=== PATIENT | female | born 1930 | race Caucasian/White ===

== ENCOUNTER 2018-10-09 10:37 | Inpatient (IN) | payer OTHER, BC ==
[2018-10-09] VITALS (43 sets, daily range): BP systolic 105–143; BP diastolic 56–80
[~2018-10-09] VITALS: Ht 157.5 cm; Wt 48.7 kg
[~2018-10-09 10:37] MED LIST: AVELOX400 MG PO; COMBIVENT INH
[2018-10-09 10:56] LABS: BASOPHILS 0.4 % (0.0-2.0); HEMOGLOBIN 12.1 gm/dL (12.0-15.0); LYMPHOCYTES 4.4 % (24.0-44.0); MCH 21.5 pg (26.0-34.0); MCV 69.4 fL (80.0-100.0); MONOCYTES 4.9 % (1.0-8.0); PLATELET COUNT 243 thou/uL (150-400); POLYS 90.3 % (36.0-66.0); RBC 5.63 mil/uL (4.20-5.00); RDW 15.9 % (10.5-14.5); WBC 11.1 thou/uL (4.0-11.0)
[2018-10-09 11:04] LABS: BE(vivo) 5.8 mmol/L (-2 to +3); HCO3 35.3 mmol/L (22.0-26.0); PCO2 77.7 mmHg (35.0-45.0); PO2 43.9 mmHg (80.0-100.0); pH 7.275 (7.360-7.450); sO2 71.5 % (92.0-98.0)
[2018-10-09 11:05] LABS: CALCIUM 9.6 mg/dL (8.5-10.1); CREATININE 1.3 mg/dL (0.6-1.0); POTASSIUM 4.2 mmol/L (3.5-5.1)
[2018-10-09 11:13] LABS: ALBUMIN 3.1 g/dL (3.4-5.0); TOTAL BILIRUBIN 0.2 mg/dL (<0.1-1.0); TOTAL PROTEIN 8.2 g/dL (6.4-8.2)
[2018-10-09] MEDS ORDERED: SYNTHROID100 MC1 PO (11:13)
[2018-10-09] MEDS ORDERED: LIPITOR10 MG PO (11:14)
[2018-10-09] MEDS ORDERED: SIMBRINZA 1%-0.28 ML OPHTHALMIC (11:14)
[2018-10-09] MEDS ORDERED: NORVASC5 MG PO (11:15)
[2018-10-09] MEDS ORDERED: LISINOPRIL20 MG PO (11:15)
[2018-10-09] MEDS ORDERED: PRED FORTE 1% EY5 M1 OPHTHALMIC (11:16)
[2018-10-09] MEDS ORDERED: FOSAMAX 70 MG T70 MG PO (11:17)
[2018-10-09 11:18] LABS: TROPONIN-I 0.81 ng/mL (<0.06)
[2018-10-09] MEDS ORDERED: CELEXA10 MG PO (11:18)
[2018-10-09] MEDS ORDERED: ARICEPT 5 MG TAB5 MG PO (11:18)
[2018-10-09] MEDS ORDERED: FISH OIL 1,001000 M2 PO (11:19)
[2018-10-09] MEDS ORDERED: CENTRUM SILVER1 EAC4 PO (11:19)
[2018-10-09 11:20] LABS: ANISOCYTOSIS 1+; MICROCYTES 2+; PLATELET ESTIMATE NORMAL
[2018-10-09] MEDS ORDERED: CALCIUM 600 +1 EAC1 PO (11:20)
[2018-10-09] MEDS ORDERED: VITAMINC500 PO (11:20)
[2018-10-09] MEDS ORDERED: ERYTHROMYCIN E3.5 G3 OPHTHALMIC (11:22)
[2018-10-09 12:43] LABS: BE(vivo) 4.6 mmol/L (-2 to +3); HCO3 34.9 mmol/L (22.0-26.0); PCO2 86.7 mmHg (35.0-45.0); PO2 474.4 mmHg (80.0-100.0); pH 7.223 (7.360-7.450); sO2 99.8 % (92.0-98.0)
--- NOTE | 2018-10-09 13:55 | NUR ---
PATIENT ARRIVED FROM ED WITH ASSISTANCE OF MEDICAL STAFF. FAMILY IN WAITING ROOM AT THIS TIME. 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 PATIENT DENIES PAIN. SHE WAS ABLE TO ANSWER ALL QUESTIONS. BIPAP IS IN PLACE. CONSULTS CALLED. AWAITING FURTHER ORDERS. PATIENT APPEARS STABLE AT THIS POINT. NURSE TO CONTINUE TO MONITOR PATIENT STATUS.
[2018-10-09 14:03] LABS: TSH 0.054 uIU/mL (0.358-3.740)
--- NOTE | 2018-10-09 14:48 | 2DMMODE ---
[facility] [address] [place] [address] 2 D/M-MODE ECHOCARDIOGRAM Name: CEDRIC JONES Room #: 244-P [facility] IN ..#: [id number] ������������� Admission: 10/09/18 ������������� Attend Phys: Dov Sánchez MD Discharge: ��� ������������� ��� Date of : [birth year] Date of Service: 10/09/18 1448 �� Report #: [id number] �������� ��������������������������������������������[id number] THIS REPORT FOR: //name// APPROVED REPORT Study performed: 10/09/2018 13:41:07 EXAM: Comprehensive 2D, Doppler, and color-flow Echocardiogram Patient Location: Bedside Room #: 244 Status: routine BSA: 1.52 HR: 91 bpm BP: 14/76 mmHg Rhythm: NSR Other Information Study Quality: Good Risk Factors: Cardiac Risk Factors: HTN, Hyperlipidemia Indications Aortic Valve Disease Elevated BNP Respiratory Failure 2D Dimensions IVSd: 12.06 (7-11mm) LVOT Diam: 19.00 (18-24mm) LVDd: 37.46 mm PWd: 12.98 (7-11mm) Ascending Ao: 37.24 (22-36mm) LVDs: 31.20 (25-40mm) Aortic Root: 25.73 mm LV Single Plane 4CH: 42.00 % LV Single Plane 2CH: 41.00 % Biplane EF: 42.0 % Volumes Left Atrial Volume (Systole) Single Plane 4CH: 63.30 mL Single Plane 2CH: 42.23 mL LA ESV Index: 37.00 mL/m2 Aortic Valve AoV Peak Tre.: 2.98 m/s AO Peak Gr.: 35.48 mmHg LVOT Max P.92 mmHg [facility] [address] [address] 2 D/M-MODE ECHOCARDIOGRAM Name: CEDRIC JONES Room #: 244-P [facility] IN [facility]#: [id number] ������������� Admission: 10/09/18 ������������� Attend Phys: Dov Sánchez MD Discharge: ��� ������������� ��� Date of : [birth year]/29/[birth year] Date of Service: 10/09/18 1448 �� Report #: [id number] �������� ��������������������������������������������[id number] AO Mean Gr.: 20.31 mmHg LVOT Mean P.81 mmHg AO V2 Mean: 2.17 m/s LVOT Max V: 1.11 m/s AO V2 VTI: 60.05 cm LVOT Mean V: 0.79 m/s PARKER (VTI): 1.10 cm2 LVOT V1 VTI: 24.17 cm PARKER Vmax: 1.02 cm2 SV (LVOT): 66.34 mL Mitral Valve E/A Ratio: 0.8 MV Decel. Time: 157.64 ms MV E Max Tre.: 1.01 m/s MV A Tre.: 1.24 m/s MV PHT: 45.72 ms IVRT: 58.82 ms TDI E/Lateral E': 14.43 E/Medial E': 25.25 Medial E' Tre.: 0.04 m/s Lateral E' Tre.: 0.07 m/s Pulmonary Valve PV Peak Tre.: 1.01 m/s PV Peak Gr.: 4.12 mmHg SC End Vmax: 1.25 m/s Pulmonary Vein P Vein S: 0.35 m/s P Vein A: 0.35 m/s P Vein D: 0.52 m/s P Vein A Dur.: 86.5 msec P Vein S/D Ratio: 0.67 Tricuspid Valve TR Peak Tre.: 3.03 m/s RAP Estimate: 10.00 mmHg TR Peak Gr.: 36.83 mmHg PA Pressure: 47.00 mmHg Left Ventricle The left ventricle is normal size. Mid anterior and lateral wall hypokinesis. Mild concentric left ventricular hypertrophy. Left ventricular systolic function is decreased. LVEF is 40-45%. Mild diastolic dysfunction is present (impaired relaxation pattern). Right Ventricle The right ventricle is normal size. The right ventricular systolic function [place] [address] 2 D/M-MODE ECHOCARDIOGRAM Name: CEDRIC JONES Room #: 244-P [facility] IN M.R.#: [id number] ������������� Admission: 10/09/18 ������������� Attend Phys: Dov Sánchez MD Discharge: ��� ������������� ��� Date of : 12/29/28 Date of Service: 10/09/18 1448 �� Report #: [id number] �������� ��������������������������������������������[id number] Left atrium is mildly dilated. The right atrium size is normal. Aortic Valve Aortic valve is calcified. No aortic regurgitation is present. The peak aortic valve gradient is 36 mmHg and the mean gradient is 20 mmHg. The aortic valve area is 1.0 cm2. Moderate aortic stenosis. Mitral Valve Mitral valve leaflets are mildly thickened. There is mitral annular calcification. Mild mitral regurgitation. No evidence of mitral valve stenosis. Tricuspid Valve The tricuspid valve is normal in structure. Mild tricuspid regurgitation. Pulmonary artery pressure is 47 mmHg. Pulmonic Valve The pulmonary valve is normal in structure. Mild to moderate pulmonic regurgitation. Great Vessels The aortic root is normal in size. IVC is normal in size and collapses >50% with inspiration. Pericardium There is no pericardial effusion. <Conclusion> The left ventricle is normal size. LVEF is 40-45%. Mid anterior and lateral wall hypokinesis. Left atrium is mildly dilated. Aortic valve is calcified. No aortic regurgitation is present. The peak aortic valve gradient is 36 mmHg and the mean gradient is 20 mmHg. The aortic valve area is 1.0 cm2. Moderate aortic stenosis. Mitral valve leaflets are mildly thickened. There is mitral annular calcification. Mild mitral regurgitation. The tricuspid valve is normal in structure. Mild tricuspid regurgitation. Pulmonary artery pressure is 47 mmHg. The pulmonary valve is normal in structure. [address] [address] 2 D/M-MODE ECHOCARDIOGRAM Name: CEDRIC JONES Room #: 244-P [facility] IN ..#: [id number] ������������� Admission: 10/09/18 ������������� Attend Phys: Dov Sánchez MD Discharge: ��� ������������� ��� Date of : [birth year]/29/28 Date of Service: 10/09/18 1448 �� Report #: [id number] �������� ��������������������������������������������[id number] Mild to moderate pulmonic regurgitation. The aortic root is normal in size. There is no pericardial effusion. ��������������������������������������������� <ELECTRONICALLY SIGNED> ���������������������������������������� By: Isaiah Pike MD ��������������������������������������������� 10/09/18 1448 1448 1448 Isaiah Pike MD /INF
--- NOTE | 2018-10-09 21:30 | NUR ---
GCS 15. A&O X3-4. FC, SWARTZ. GENERALIZED WEAKNESS. CALM, PLEASANT DEMEANOR. FORGETFUL AT TIMES. PERIODS OF DROWSINESS. SINUS RHYTHM ON MONITOR. PT REMAINS ON BIPAP. O2 SAT > 92%. BIPAP SETTINGS FOLLOWS: 16/6, RATE 18, FIO2 40%. ORAL MUCOSA DRY. LOOSE TEETH. PROVIDING FREQUENT ORAL CARE. PT IS NPO; SPEECH TO EVALUATE PT IN THE MORNING. ZUNIGA TO DD. ADEQUATE URINE OUTPUT. TURN Q2 HR AND PRN. VITAL SIGNS AND ASSESSMENTS DOCUMENTED. WILL CONTINUE TO MONITOR.
[2018-10-09 23:06] LABS: GLYCOHEMOGLOBIN (HGB A1C) 6.2 % (4.8-5.6)
[2018-10-10] VITALS (77 sets, daily range): BP systolic 118–150; BP diastolic 63–92
[2018-10-10 05:26] LABS: ABSOLUTE NEUTROPHILS 9.6 thou/uL (1.4-8.2); BASOPHILS 0.7 % (0.0-2.0); HEMATOCRIT 39.8 % (37.0-47.0); HEMOGLOBIN 12.2 gm/dL (12.0-15.0); MCH 21.4 pg (26.0-34.0); MCHC 30.8 g/dL (28.0-37.0); MCV 69.4 fL (80.0-100.0); MONOCYTES 6.5 % (1.0-8.0); PLATELET COUNT 227 thou/uL (150-400); POLYS 87.8 % (36.0-66.0); RBC 5.73 mil/uL (4.20-5.00); RDW 15.8 % (10.5-14.5); WBC 10.9 thou/uL (4.0-11.0)
[2018-10-10 05:54] LABS: ANION GAP 7 mmol/L (7-16); BUN 38 mg/dL (7-18); CALCIUM 8.6 mg/dL (8.5-10.1); CHLORIDE 101 mmol/L (98-107); CHOLESTEROL 143 mg/dL (<200); CO2 33 mmol/L (21-32); CREATININE 0.8 mg/dL (0.6-1.0); GLUCOSE 195 mg/dL (74-106); HDL CHOLESTEROL 53 mg/dL (>40); LDL CHOLESTEROL 77 mg/dL (<100); MAGNESIUM 2.1 mg/dL (1.8-2.4); POTASSIUM 4.4 mmol/L (3.5-5.1); SERUM ASSESSMENT Clear; SODIUM 141 mmol/L (136-145); TC:HDL 2.7 Ratio (Not establshd); TRIGLYCERIDE 66 mg/dL (<150); VLDL 13 mg/dL (<40)
[2018-10-10 05:55] LABS: TROPONIN-I 0.74 ng/mL (<0.06)
--- NOTE | 2018-10-10 10:43 | EKG ---
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: : 1930 Requested By: Suzy Porter Order Number: [id number] MD: Isaiah Pike Measurements Intervals [place] Rate: 103 P: 89 WA: 196 QRS: 45 QRSD: 104 T: 109 QT: 340 QTc: 445 Interpretive Statements Sinus tachycardia Poor R-wave progression Biatrial enlargement LVH with secondary repolarization abnormality Baseline wander in lead(s) V4 No previous ECG available for comparison Electronically Signed On 10-10-2018 10:42:53 [address] [employer] by Isaiah Pike [email or web address] ��������������������������������������������� <ELECTRONICALLY SIGNED> ���������������������������������������� By: Isaiah Pike MD ��������������������������������������������� 10/10/18 1042 29 29 Isaiah Pike MD /EPI
--- NOTE | 2018-10-10 12:12 | EKG ---
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 : 1930 Requested By: Nemo Hampton Order Number: [id number] MD: Isaiah Pike Measurements Intervals [place] Rate: 78 P: 80 ID: [id number] QRS: 32 QRSD: 101 T: 80 QT: 405 QTc: 462 Interpretive Statements Sinus rhythm Right atrial enlargement left ventricular hypertrophy Nonspecific ST-T wave changes Baseline wander No previous ECG available for comparison Electronically Signed On 10-10-2018 12:12:33 CONSTRUCTION MANAGER by Isaiah Pike [email or web address] ��������������������������������������������� <ELECTRONICALLY SIGNED> ���������������������������������������� By: Isaiah Pike MD ��������������������������������������������� 10/10/18 1212 0639 8 Isaiah Pike MD /AILYN
--- NOTE | 2018-10-10 14:26 | HC ---
[facility] [place] [address] CONSULTATION Name: CEDRIC JONES Room #: 244-P [facility] IN .R.#: [id number] Admission: 10/09/18 ������������������ Attend Phys: Dov Sánchez MD Discharge: ������������������ Date of : [birth year]/29/[birth year] Report #: [id number] THIS REPORT FOR: //name// CC: Luis E Sánchez TYPE OF REPORT: Pulmonary consultation. REFERRAL PHYSICIAN: Dov Sánchez M.D. REASON FOR REFERRAL: Acute hypoxic respiratory failure. HISTORY OF PRESENT ILLNESS: The patient is an 87-year-old white female who was brought to the Emergency Department with hypoxia and dyspnea. A Pulmonary consultation was requested. The patient has a history of breast cancer, undergoing left mastectomy in 2007. Otherwise, she has been doing fairly well. Despite her advanced age, she is remaining active. She lives independently. She has ambulated up to recently, though the son notes that she has been slowing down somewhat. The patient has smoked for many years, quit in . She has been told that she has COPD. She was in her usual state of health until earlier today. She was noted to be hypoxic and she was noted to be tachypneic. EMS was called. When they arrived at her residence, she was found to be hypoxic with a saturation of 60%. She was brought to the Emergency Department. She was then placed on BiPAP. Currently, she is doing fairly well. She is awake, alert, in no distress. The patient denies any recent nausea, vomiting, diarrhea, febrile illness, chest pain or productive cough. PAST MEDICAL HISTORY: History of breast cancer, status post left mastectomy in 2007. Details not known, history of hypertension, hypothyroidism, dementia, depression, osteoporosis and history of COPD. ALLERGIES: TETRACYCLINE, her reactions unspecified. HOME MEDICATIONS: Synthroid, Lipitor, Simbrinza, Zestril, Norvasc, Fosamax, Aricept, Celexa, multivitamins and erythromycin eyedrops. FAMILY HISTORY: Noncontributory. SOCIAL HISTORY: The patient has smoked for many years but quit in . She [facility] [address] [address] CONSULTATION Name: CEDRIC JONES Carmen Room #: 244-P [facility] IN M.R.#: [id number] Admission: 10/09/18 ������������������ Attend Phys: Dov Sánchez MD Discharge: ������������������ Date of : [birth year]/29/[birth year] Report #: [id number] has drunk in the past but not more recently. She lives independently. She continues to live independently. REVIEW OF SYSTEMS: As mentioned above. Notable for gradual weakness. She is still ambulating, though the gait is slowed somewhat. There has been gradual weight loss over the past year or so, less than 10 pounds. Otherwise, 10-point system review negative. PHYSICAL EXAMINATION: GENERAL: She is awake, alert, in mild distress, currently, tolerating BiPAP. VITAL SIGNS: Temperature is 99 degrees Fahrenheit, pulse is 86, respiratory rate is 27, blood pressure 125/71 mmHg and saturation 99%. HEENT: Normocephalic and atraumatic. NECK: Supple, without any lymphadenopathy or thyromegaly. CHEST: Breath sounds are fair with mild expiratory wheezes. Few scattered crackles in the bases. CARDIOVASCULAR: Normal S1 and S2. There are no murmurs or gallop. There is no JVD. There is no carotid bruit. Pulses are 2+/4+ bilaterally. ABDOMEN: Soft and nontender. No organomegaly or masses felt. GENITOURINARY: Deferred. RECTAL: Deferred. EXTREMITIES: No edema, cyanosis or clubbing. MUSCULOSKELETAL: Notable for moderate muscle atrophy. RADIOLOGICAL DATA: Chest x-ray and chest CT are reviewed. CT chest shows no evidence of pulmonary embolus. It did show mild bilateral patchy infiltrates predominantly in the subpleural areas, increase in infiltrate in the right middle lobe, mild bronchiectasis is also noted along with mild second peribronchial areas seen bilaterally. Mediastinum appears to show mildly enlarged subcarinal lymph nodes; however, no effusion seen and no consolidation or air bronchogram seen. EKG shows LVH, atrial premature complexes, biatrial enlargement, otherwise no acute ischemic changes. LABORATORY DATA: Electrolytes are normal except for creatinine of 1.3. Liver enzymes are grossly unremarkable. WBC 11,100 without a left shift. Arterial blood gas revealed pH 7.22, pCO2 of 86 and pO2 474 on 100% FiO2. Albumin is 3.1. Troponin 1.0. IMPRESSION: 1. Bebar-oz-gtnpnjr hypercapnic hypoxic respiratory failure in this 87-year-old white female probably due to exacerbation of chronic obstructive pulmonary disease. Pneumonia is felt to be likely given abnormal chest radiograph. 2. Probable severe chronic obstructive pulmonary disease, past history of tobacco use. Severity is unknown but may be severe given chronic hypercapnia. 3. Chronic hypercapnic respiratory insufficiency. Unclear whether this is all [facility] [address] [facility] [place] [address] CONSULTATION Name: CEDRIC JONES Room #: 244-P [facility] IN M.R.#: [id number] Admission: 10/09/18 ������������������ Attend Phys: Dov Sánchez MD Discharge: ������������������ Date of : [birth year]/29/[birth year] Report #: [id number] due to chronic obstructive pulmonary disease versus hypoventilation due to debility and weakness. 4. Mild patchy bilateral nodular infiltrates, increased nodular density seen in the right middle lobe. Etiology is not determined at this time. This likely represents an inflammatory process such as granulomatous disease versus possible atypical infection. Note that clinically she did not have productive cough or febrile illness. 5. Recent weight loss, progressive weakness, etiology unclear at this moment but may be related to severe pulmonary impairment such as pulmonary cachexia syndrome. 6. Renal insufficiency, creatinine 1.3, (?) acute kidney injury. 7. Elevated troponin, Cardiology has been consulted. 8. History of hypertension. 9. History of hypothyroidism. 10. Dementia. 11. Depression. 12. Medical directive: She desires a full code blue. The patient is alert to place and time. RECOMMENDATIONS AND DISCUSSION: The patient likely has been hypoxic and hypercapnic for some time. This is perhaps related to underlying COPD and exacerbated by progressive weakness and advanced age. The abnormal chest CT likely suggests inflammatory process, perhaps from past infections but cannot rule out atypical infection as mentioned above. Bronchiectasis is consistent with a history of COPD with probable history of bronchitis. We will continue noninvasive positive pressure ventilation for now. Maintain saturation 90%, as this will improve paradoxical hypercapnia. Keep the saturation around 88%-90%. We recommend broad-spectrum antibiotics, corticosteroids and bronchodilators. DVT and GI prophylaxis recommended. I have a long discussion with the above findings with the patient's son and voiced understanding. They understand that if she does not improve, the patient may require intubation. Thank you for this consultation. ��������������������������������������������� <ELECTRONICALLY SIGNED> ���������������������������������������� By: Cayden Melo MD ��������������������������������������������� 10/10/18 1426 1633 1 MD abdiel Brock
--- NOTE | 2018-10-10 17:50 | NUR ---
PT IS ALERT AND ORIENTED X4. LUNGS ARE CLEAR TO DIMINSIHED. ON OPI FLOW AT 40 PERCENT MAINTAINGING OXYGEN SATURATION OF 92 PERCENT. SINUS RHYTHM ON THE STRAIGHTENING PRESS OPERATOR HELPER. NPO. ZUNIGA TO DD WITH CLEAR YELLOW URINE. DENIES ANY PAIN. SCD ON BILATERAL. FAMILY AT BEDSIDE TODAY. WILL CONTINUE TO ASSESS AND MONITOR PER NURSING
[2018-10-11] VITALS (23 sets, daily range): BP systolic 98–148; BP diastolic 50–81
--- NOTE | 2018-10-11 06:21 | NUR ---
PT ON BIPAP SINCE BEDTIME, CURRENT SETTINGS 16/, RATE 16, FIO2 40 %, MAINTAINING ADEQUATE SATS. PT WAS RESTFUL, EASILY AWAKENS AND FOLLOWS COMMANDS ORIENTED X2 TO 3 AND FORGETFULL. ZUNIGA TO DEPENDENT DRAINAGE , URINE OUTPUT 350ML OVERNIGHT. PT NPO.
[2018-10-11 06:29] LABS: MCH 21.4 pg (26.0-34.0); MCHC 30.6 g/dL (28.0-37.0); RBC 5.58 mil/uL (4.20-5.00); RDW 16.6 % (10.5-14.5); WBC 13.9 thou/uL (4.0-11.0)
[2018-10-11 06:40] LABS: CALCIUM 8.2 mg/dL (8.5-10.1); CREATININE 0.7 mg/dL (0.6-1.0); POTASSIUM 4.4 mmol/L (3.5-5.1)
--- NOTE | 2018-10-11 19:15 | NUR ---
Pt alert and oriented. SWARTZ. Stood at bedside this morning with PT and dangled. Sinus rhythm at rest...tachycardic with exertion. Taken off BIPAP by RT at beginning of the shift and placed on high flow oxygen (40% and 40 L). O2 was titrated up to 50% today for O2 sats dipping into high 80's. Productive cough. Diet started. Tolerating meals with no apparent problems. Urine output marginal. Pt's children (3/4) here to visit today. Report given to the RN assuming care of the patient.
[2018-10-12] VITALS (68 sets, daily range): BP systolic 106–142; BP diastolic 45–85
[2018-10-12 06:22] LABS: HEMATOCRIT 38.8 % (37.0-47.0); MCH 21.9 pg (26.0-34.0); MCHC 30.8 g/dL (28.0-37.0); MCV 71.2 fL (80.0-100.0); RBC 5.45 mil/uL (4.20-5.00); RDW 16.6 % (10.5-14.5); WBC 15.7 thou/uL (4.0-11.0)
[2018-10-12 06:30] LABS: CALCIUM 8.5 mg/dL (8.5-10.1); CREATININE 0.8 mg/dL (0.6-1.0); POTASSIUM 4.5 mmol/L (3.5-5.1)
--- NOTE | 2018-10-12 07:30 | NUR ---
ASSUMED CARE OF PT AT 0030. PT A&O X4 AND FORGETFUL. PT ON OPTIFLOW AT 50%. PT'S O2 SAT SLOWLY DECREASED AND PT WAS PUT ON BIPAP EARLIER THIS MORNING. PT TOLERATED BIPAP WELL AND O2 SAT STAYED ABOVE 92% ON 40% FIO2. ASSESSMENTS AND VITALS DOCUMENTED. PT MOVED TO ANOTHER ROOM IN ICU AT SHIFT CHANGE. WILL CONTINUE TO MONITOR PT CLOSELY.
--- NOTE | 2018-10-12 19:58 | NUR ---
END OF SHIFT NOTE. PT SITTING UPRIGHT IN BED TO BREATH. + USE OF ACCESSORY MUSCLES. ON 50 OPTI MAX. VSS. DENIES PAIN. TOLORATING DIET.
[2018-10-13] VITALS (70 sets, daily range): BP systolic 83–155; BP diastolic 46–117
[2018-10-13 04:44] LABS: CALCIUM 8.8 mg/dL (8.5-10.1); CREATININE 0.7 mg/dL (0.6-1.0); POTASSIUM 4.6 mmol/L (3.5-5.1)
--- NOTE | 2018-10-13 06:00 | NUR ---
PT REMAINS ORIENTED X 3 SLEPT AT INTERVALS TONIGHT. BECOMES RESTLESS AT TIMES AND THROWS LEGS OVER THE SIDE RAIL. SINUS RHYTHM, REMAINS ON OPTIFLOW AT 50 % CONBT TO BE DYSPNIC WITH ANY EXERTION. WILL CONT TO MONITIOR.
[2018-10-13 08:45] LABS: BE(vivo) 2.8 mmol/L (-2 to +3); HCO3 35.2 mmol/L (22.0-26.0); PO2 89.1 mmHg (80.0-100.0); sO2 92.9 % (92.0-98.0)
[2018-10-13 08:46] LABS: pH 7.127 (7.360-7.450)
[2018-10-13 10:07] LABS: BE(vivo) 3.1 mmol/L (-2 to +3); HCO3 34.7 mmol/L (22.0-26.0); PO2 75.1 mmHg (80.0-100.0); sO2 89.7 % (92.0-98.0)
[2018-10-13 10:08] LABS: PCO2 100.2 mmHg (35.0-45.0); pH 7.157 (7.360-7.450)
--- NOTE | 2018-10-13 15:17 | NUR ---
CM ASSESSMENT: CASE OPENED FOR DC PLANNING. CLINICAL INFO REVIEWED. PT ADMITTED WI TH RESP FAILURE AND HAS REQUIRED BIPAP OR VAPOTHERM 50 LITER FLOW FIO2 40% SINCE ADMIT. CURRENTLY ON BIPAP CONTINUOUSLY. MET WITH PT'S SONS GAGE AND EMERY. GAGE IS DPOA AND EMERY IS ALTERNATE AND DOCUMENT IN CHART. PT LIVES IN [place] HOUSE ALONE AND WAS INDEPENDENT WITH ADLS AND IADLS SURVEY DIRECTOR. DRIVES, VOLUNTEERS AT HER [place] ALMOST DAILY. SONS CONCERNED ABOUT WHETHER PT WILL BE ABLE TO RETURN HOME AT DISCHARGE. THEY INDICATE PT'S PCP DR. STEVEN DIXON, TOLD THEM LAST YEAR PT WOULD BENEFIT FROM LIVING IN ASSISTED LIVING BUT PT UMWILLING. GAGE LIVES IN [place] [facility]. HE INDICATES PT IS METHODICAL ABOUT HER DAILY ROUTINE AND TAKES HER MEDS ACCURATELY AND PAYS ALL HER BILLS ON TIME. HX INCLUDES DEMENTIA AND ARICEPT 5 MG DAILY ON HOME MED LIST. DISCUSSED REHAB LEVELS, HOME HEALTH, SKILLED AND ACUTE AND PROVIDED RESOURCES FOR ALL PLUS BLUE BOOK FOR EACH SON TO USE FOR ASSISTED LIVING RESOURCE. SONS INDICATE THEY ARE AGREEABLE TO REHAB, ACUTE ON 5N IF PT MEETS ADMISSIONS CRITERIA, AND PLAN B SKILLED REHAB AND WILL REVIEW SKILLED FOR REFERRALS. PT NOT APPROPRIATE TO WORK WITH THERAPIES YET, WILL FOLLOW TO ASSIST WITH DC PLANNING WILL LIKELY NEED TRANSITION TO REHAB FACILITY.
--- NOTE | 2018-10-13 18:39 | NUR ---
ASSESSMENT DOCUMENTED. PT HAS BEEN SLEEPING ON AND OFF THIS SHIFT. AM CRITICAL RESULTS CALLED IN TO DR. HERNANDEZ. ORDERS NOTED. FAMILY UPDATED ON PT'S PROGRESS. ON A BIPAP. VSS. WILL CONTINUE TO MONITOR.
[2018-10-14] VITALS (24 sets, daily range): BP systolic 109–137; BP diastolic 57–92
[2018-10-14 05:13] LABS: HEMATOCRIT 36.5 % (37.0-47.0); HEMOGLOBIN 10.8 gm/dL (12.0-15.0); MCH 21.2 pg (26.0-34.0); MCHC 29.6 g/dL (28.0-37.0); MCV 71.5 fL (80.0-100.0); RBC 5.11 mil/uL (4.20-5.00); RDW 16.4 % (10.5-14.5)
[2018-10-14 05:24] LABS: CALCIUM 8.5 mg/dL (8.5-10.1); CREATININE 0.6 mg/dL (0.6-1.0); POTASSIUM 4.7 mmol/L (3.5-5.1)
[2018-10-14 05:53] LABS: BE(vivo) 2.4 mmol/L (-2 to +3); HCO3 31.8 mmol/L (22.0-26.0); PO2 108.6 mmHg (80.0-100.0); pH 7.228 (7.360-7.450); sO2 96.8 % (92.0-98.0)
[2018-10-14 10:29] LABS: BE(vivo) 5.4 mmol/L (-2 to +3); HCO3 34.8 mmol/L (22.0-26.0); PO2 85.6 mmHg (80.0-100.0); sO2 94.4 % (92.0-98.0)
[2018-10-14 10:32] LABS: PCO2 80.6 mmHg (35.0-45.0); pH 7.253 (7.360-7.450)
[2018-10-15] VITALS (23 sets, daily range): BP systolic 100–152; BP diastolic 51–97
--- NOTE | 2018-10-15 02:50 | NUR ---
Received patient sitting on the bedside chair on BIPAP, LUNG SOUND COARSE, 02 SATS 97-99%. AOX4, HARD OF HEARING. BLIND ON LEFT EYE. DENIES PAIN. PULSES 2+/2+, SR IN THE MONITOR. ZUNIGA CATHETER DRAINING TO A YELLOWISH URINE OUTPUT. SCD ON. D5 1/2 NSS AT 75 ML/HOUR INFUSING WELL ON THE RIGHT FOREARM IV. PATIENT ASSISTED BACK TO THE BED WITH 2 ASSIST. MAINTAINED ON ASPIRATION PRECAUTION. PATIENT ATE DINNER BUT COMPLAINT THAT FOOD WAS "CRAPPY" AND THAT SHE "ALWAYS GET THE SAME FOOD". OFFERRED VANILLA PUDDING AND WAS ABLE TO FINISH IT. PATIENT ASKED FOR HER CHOCOLATE BOOST AND WAS ABLE TO DRINK FEW SIPS. PATIENT REFUSED HER PREDNISOLONE EYE DROP. SHE VERBALIZED THAT SHE ONLY TAKES THE PREDNISOLONE EYEDROPS ONCE A DAY IN THE MORNING. TURNING EVERY 2 HOURS DONE. ORAL CARE DONE, ZUNIGA CARE DONE. SCD ON. MAINTAINED ON HIGH FALL RISK PRECAUTION, Q 2 HOURS TURNING DONE. FF UP POC.
[2018-10-15 04:03] LABS: CALCIUM 9.4 mg/dL (8.5-10.1); CREATININE 0.5 mg/dL (0.6-1.0)
[2018-10-15 04:32] LABS: HEMATOCRIT 35.1 % (37.0-47.0); HEMOGLOBIN 10.8 gm/dL (12.0-15.0); MCH 21.6 pg (26.0-34.0); MCHC 30.7 g/dL (28.0-37.0); MCV 70.4 fL (80.0-100.0); RBC 4.99 mil/uL (4.20-5.00); RDW 16.2 % (10.5-14.5); WBC 8.7 thou/uL (4.0-11.0)
[2018-10-15 05:45] LABS: BE(vivo) 10.2 mmol/L (-2 to +3); HCO3 39.4 mmol/L (22.0-26.0); sO2 95.3 % (92.0-98.0)
[2018-10-15 05:46] LABS: PCO2 82.3 mmHg (35.0-45.0); pH 7.298 (7.360-7.450)
[2018-10-16] VITALS (22 sets, daily range): BP systolic 95–148; BP diastolic 47–109
--- NOTE | 2018-10-16 06:19 | NUR ---
PT MAKING SLOW PROGRESS TOWARDS GOALS. INTIALLY ON BIPAP. DID SPEAK WITH RT AND NEW SLIGHTLY LARGER BETTER FITTING MASK WAS PLACED ON THE PT. PT INITIAL VOICING DISCOMFORT AND ANXIETY BUT STATED THIS HAD IMPROVED SLIGHTLY ONCE THE NEW MASK WAS PLACED. PT OFF BIPAP IN THE EVENING FOR NIGHT TIME MEDS AND SNACK. PLACED ON O2 PER NC AT 10L. O2 SATS REMAINED 99-100%. NOTABLE CONGESTED COUGH. BACK ON BIPAP AT 2230 FOR SLEEP UNTIL 0330 WHEN PT STATED SHE WANTED TO TAKE IT OFF. RESUMED O2 AT 10L PER NC. O2 SATS REMAINED 99-100%. TITRATED SLOWLY DOWN ON O2. NOW AT 8L PER NC WITH O2 SATS STILL 99-100%. CONTINUE TO MONITOR.
--- NOTE | 2018-10-16 10:44 | NUR ---
MORNING ASSESSMENT COMPLETE - PT DENIES CONCERNS - ALERT AND ORIENTED TO SELF AND PLACE - BREAKFAST EATEN INDEPENDANTLY - OOB TO BEDSIDE CHAIR /S DIFFICULTY - FAMILY AT BEDSIDE - DR. ERNANDEZ AND DR. HERNANDEZ HAVE ROUNDED FOR THE AM - VSS SATS REMAIN IN UPPER 90S ON 6L NC
[2018-10-17] VITALS (15 sets, daily range): BP systolic 93–120; BP diastolic 50–68
--- NOTE | 2018-10-17 09:18 | NUR ---
Pt a/o x 4, NEWTOK, left eye blind. SOB upon exertion. On O2 6L NC before use of BiPAP at bedtime. Refused BiPAP during middle of night. NC back on with ability to titrate down from 6L to 2L. Denies pain or any other discomfort. No apparent distress noted. Castañeda catheter removed at 0600 this AM, pt tolerated removal well. Pt assisted to chair this AM. Pt resting in chair comfortably. Chair alarm on. Fall precautions in place. Call light within reach. Shift change report completed with incoming day-shift RN.
[2018-10-17 11:22] LABS: HCO3 41.8 mmol/L (22.0-26.0); PO2 81.7 mmHg (80.0-100.0); pH 7.349 (7.360-7.450); sO2 94.9 % (92.0-98.0)
[2018-10-17 11:23] LABS: PCO2 77.6 mmHg (35.0-45.0)
--- NOTE | 2018-10-17 14:08 | NUR ---
PATIENT ALERT AND ORIENTED X4, HARD OF HEARING. 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 ON 3L NASAL CANNULA, SHORTNESS OF BREATH WITH ACTIVITY. TOLERATING DIET. UP WITH X1 ASSISTANCE, WALKED HALLWAY WITH PHYSICAL THERAPY. TB SKIN TEST APPLIED TO RIGHT FOREARM. FAMILY AND PATIENT UPDATED ON THE PLAN OF CARE. NO SIGNS OF ACUTE DISTRESS NOTED AT THIS TIME. REPORT CALLED TO ONCOMING RN, TRANSFERRED TO CCU.
--- NOTE | 2018-10-17 16:24 | HC ---
[facility] [place] [address] CONSULTATION Name: CEDRIC JONES Room #: 204-P [facility] IN M.R.#: [id number] Admission: 10/09/18 ������������������ Attend Phys: Dov Sánchez MD Discharge: ������������������ Date of : [birth year] Report #: [id number] THIS REPORT FOR: //name// CC: Luis E Sánchez DATE OF SERVICE: 10/16/2018 INFECTIOUS DISEASE CONSULTATION REASON FOR CONSULTATION: I was asked to evaluate concerning pneumonia. HISTORY OF PRESENT ILLNESS: The patient is an 87-year-old presents with a several-day history of progressive shortness of breath. She was found by her son at her home, dyspneic with O2 saturation 40%. Transported by EMS to the Emergency Room, where she had evidence of bilateral nodular infiltrates with nonproductive cough and elevated troponin. She was placed on BiPAP and has done well with this program. Also given corticosteroids, antibiotics and nebulized treatments. So far, blood cultures have been negative. Her white count has normalized. She has been afebrile. Now out of bed and states that she feels improved. There has been no pleuritic chest pain. No hemoptysis. She does no travel. No HIV risk factors. No history of tuberculosis or previous pneumonias. ALLERGIES: TETRACYCLINE. MEDICATIONS: As noted on her MAR, now on azithromycin and ceftriaxone. She remains on oxygen per nasal cannula and p.r.n. BiPAP. REVIEW OF SYSTEMS: Denies any nausea, vomiting, diarrhea, dysuria or frequency. Now has an indwelling Castañeda catheter. There have been no rashes or decubiti. She has had no psychiatric issues. She does have underlying dementia. There have been no other neurologic issues. A 10-point review otherwise negative, other than what has been described above. PAST MEDICAL HISTORY: Coronary artery disease, hypertension, hypothyroidism, depression, osteoporosis, glaucoma, dementia, breast cancer, left mastectomy and eye surgery. FAMILY HISTORY: Noncontributory. SOCIAL HISTORY: Past smoker. No significant alcohol intake. PHYSICAL EXAMINATION: VITAL SIGNS: Afebrile and hemodynamically stable. GENERAL: The patient was sitting up in her chair, in no distress. [facility] [address] [place] [address] CONSULTATION Name: CEDRIC JONES Room #: 204-P [facility] IN M.R.#: [id number] Admission: 10/09/18 ������������������ Attend Phys: Dov Sánchez MD Discharge: ������������������ Date of : 12/29/[birth year] Report #: [id number] SKIN: Without rash or decubitus. No palpable adenopathy. HEENT: Eyes without scleral icterus. 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 Mouth without mucositis. NECK: Supple, with no thyromegaly or mass. LUNGS: Few crackles in the bases bilaterally. No consolidation. HEART: Regular, without gallop or rub. She has a 1/2 systolic murmur heard at the left sternal border. BREASTS: Left breast absent. ABDOMEN: Protuberant, nontender. No hepatosplenomegaly or mass. GENITOURINARY: External genitalia unremarkable, with indwelling Castañeda catheter. RECTAL EXAMINATION: Not performed. NEUROLOGIC: Cranial nerves intact, other than blind left eye. Strength in her upper and lower extremities was normal. Sensation intact. EXTREMITIES: Without clubbing, cyanosis or edema. LABORATORY STUDIES: Procalcitonin 0.1. Hemoglobin 10.8, platelet count 213,000 and WBC 8.7. Sodium 140, potassium 5, bicarbonate 38 and creatinine 0.5. Liver function tests normal. Blood culture is negative. ABGs on 40% BIPAP showed a pO2 of 88, pCO2 of 82, pH of 7.29 and bicarbonate at 39. Chest x-ray, extensive chronic changes. CT scan showed nodular infiltrates in both lungs. IMPRESSION AND PLAN: 1. Sepsis, improved. 2. Pneumonia, on treatment. 3. Bilateral nodular infiltrates, possible atypical infection. 4. Chronic obstructive pulmonary disease. 5. May have a component of bronchiectasis. 6. Acute kidney injury, improved. 7. Hypertension, controlled. 8. Ischemic cardiomyopathy with moderate aortic stenosis. 9. Cardiac ischemia, improved. RECOMMENDATIONS: We will continue her current antibiotic program, obtain urine antigens. Sputum for bacteria, fungus and AFB. Check histoplasma antibody. Screen tuberculosis, although the patient is low risk for such. Follow CT scan after discharge. If any further decline or progression, would consider bronchoscopy. It is noted the patient is 87 years old; therefore, we will need to discuss this in detail before pursuing any further studies. ��������������������������������������������� <ELECTRONICALLY SIGNED> ���������������������������������������� By: Steve Bryan MD ��������������������������������������������� 10/17/18 1624 [id number] Steve Bryan MD /nt
--- NOTE | 2018-10-17 16:49 | NUR ---
Pt has been accepted for a 5N acute rehab stay and they will have a bed for the pt tomorrow if medically ready. All parties updated.
[2018-10-18 00:48] VITALS: BP 121/70
[2018-10-18 05:19] VITALS: BP 117/68
--- NOTE | 2018-10-18 07:41 | NUR ---
ASSUMED PT CARE AT 1900 WITH NO SIGN OF DISTRESS NOTED. PT IS ALERT, PT IS ON 2L NC AND REQUIRED TO PUT ON CPAP AT NIGHTTIME. NO SIGN OF DISTRES NOTED, PT TOLERATED PO INTAKE, VITAL SIGNS STABLE, DENIES ANY NEEDS AT THIS TIME.
[2018-10-18 07:45] VITALS: BP 112/64
[2018-10-18 08:00] LABS: HEMATOCRIT 35.8 % (37.0-47.0); HEMOGLOBIN 10.8 gm/dL (12.0-15.0); MCH 20.8 pg (26.0-34.0); MCHC 30.1 g/dL (28.0-37.0); MCV 69.1 fL (80.0-100.0); RBC 5.18 mil/uL (4.20-5.00); RDW 15.8 % (10.5-14.5); WBC 12.2 thou/uL (4.0-11.0)
[2018-10-18 08:09] LABS: BUN 25 mg/dL (7-18); CALCIUM 9.4 mg/dL (8.5-10.1); CHLORIDE 97 mmol/L (98-107); CREATININE 0.6 mg/dL (0.6-1.0); GLUCOSE 139 mg/dL (74-106); SODIUM 140 mmol/L (136-145)
[2018-10-18 08:11] LABS: CO2 > 45 mmol/L (21-32)
[2018-10-18 08:12] LABS: POTASSIUM 6.1 mmol/L (3.5-5.1)
[2018-10-18 08:14] LABS: % SATURATION 57 % (20-39); IRON 116 ug/dL (50-170); TIBC 205 ug/dL (250-450)
[2018-10-18 08:57] LABS: FOLIC ACID 32.5 ng/mL (8.6-58.9)
[2018-10-18 09:19] LABS: BE(vivo) 15.6 mmol/L (-2 to +3); HCO3 44.2 mmol/L (22.0-26.0); PCO2 76.1 mmHg (35.0-45.0); PO2 73.8 mmHg (80.0-100.0); pH 7.382 (7.360-7.450); sO2 93.9 % (92.0-98.0)
[2018-10-18 11:32] LABS: CALCIUM 9.2 mg/dL (8.5-10.1); CREATININE 0.7 mg/dL (0.6-1.0); POTASSIUM 5.4 mmol/L (3.5-5.1)
[2018-10-18 12:00] VITALS: BP 102/47
[2018-10-18] MEDS ORDERED: CEFDINIR300 MG PO (13:40)
[2018-10-18] MEDS ORDERED: AZITHROMYCIN 2250 MG PO (13:41)
[2018-10-18] MEDS ORDERED: ADULT LOW DOSE81 MG PO (13:42)
[2018-10-18] MEDS ORDERED: MUCINEX600 MG PO (13:43)
[2018-10-18] MEDS ORDERED: BRIMONIDINE TART5 ML OPHTHALMIC (13:52)
[2018-10-18] MEDS ORDERED: SEROQUEL 25 MG25 M1 PO (15:21)
[2018-10-18 15:36] VITALS: BP 102/47
[2018-10-20 16:07] LABS: HISTOPLASMA MYCELIAL-ID Negative (Negative)
== END 2018-10-18 15:56 | DRG 871 ==
LOC: ER 10:37 → ICU 12:14 → 2N 12:14 → EROBS 12:14 → 2N 12:14 → ICU 13:20 → 2N 10-17 13:57
PROVIDERS: Internal Medicine; Internal Medicine Pulmonary Disease; Nurse Practitioner; Pediatrics; Specialist; Student in an Organized Health Care Education/Training Program; ADMIT Hospitalist
PROC: 5A09357 Assistance with Respiratory Ventilation, Less than 24 Consecutive Hours, Continuous Positive Airway Pressure (ICD-10-PCS; principal; 2018-10-09)
PROC: 5A09357 Assistance with Respiratory Ventilation, Less than 24 Consecutive Hours, Continuous Positive Airway Pressure (ICD-10-PCS; 2018-10-10)
PROC: 5A09357 Assistance with Respiratory Ventilation, Less than 24 Consecutive Hours, Continuous Positive Airway Pressure (ICD-10-PCS; 2018-10-11)
PROC: 5A09357 Assistance with Respiratory Ventilation, Less than 24 Consecutive Hours, Continuous Positive Airway Pressure (ICD-10-PCS; 2018-10-12)
PROC: 5A09357 Assistance with Respiratory Ventilation, Less than 24 Consecutive Hours, Continuous Positive Airway Pressure (ICD-10-PCS; 2018-10-13)
PROC: 5A09357 Assistance with Respiratory Ventilation, Less than 24 Consecutive Hours, Continuous Positive Airway Pressure (ICD-10-PCS; 2018-10-14)
PROC: 5A09357 Assistance with Respiratory Ventilation, Less than 24 Consecutive Hours, Continuous Positive Airway Pressure (ICD-10-PCS; 2018-10-15)
PROC: 5A09357 Assistance with Respiratory Ventilation, Less than 24 Consecutive Hours, Continuous Positive Airway Pressure (ICD-10-PCS; 2018-10-16)
PROC: 5A09357 Assistance with Respiratory Ventilation, Less than 24 Consecutive Hours, Continuous Positive Airway Pressure (ICD-10-PCS; 2018-10-17)
DX: A41.9 Sepsis, unspecified organism (principal); J18.9 Pneumonia, unspecified organism; J96.21 Acute and chronic respiratory failure with hypoxia; J96.22 Acute and chronic respiratory failure with hypercapnia; E44.1 Mild protein-calorie malnutrition; N17.9 Acute kidney failure, unspecified; J44.1 Chronic obstructive pulmonary disease with (acute) exacerbation; Z68.1 Body mass index [BMI] 19.9 or less, adult; J44.0 Chronic obstructive pulmonary disease with (acute) lower respiratory infection; I10 Essential (primary) hypertension; E03.9 Hypothyroidism, unspecified; F03.90 Unspecified dementia, unspecified severity, without behavioral disturbance, psychotic disturbance, mood disturbance, and anxiety; F32.9 Major depressive disorder, single episode, unspecified; M81.0 Age-related osteoporosis without current pathological fracture; I25.10 Atherosclerotic heart disease of native coronary artery without angina pectoris; H40.9 Unspecified glaucoma; I25.5 Ischemic cardiomyopathy; I25.9 Chronic ischemic heart disease, unspecified; E87.70 Fluid overload, unspecified; Z60.2 Problems related to living alone; I35.0 Nonrheumatic aortic (valve) stenosis; R00.0 Tachycardia, unspecified; Z88.1 Allergy status to other antibiotic agents; Z85.3 Personal history of malignant neoplasm of breast; Z90.12 Acquired absence of left breast and nipple; Z87.891 Personal history of nicotine dependence; Z82.49 Family history of ischemic heart disease and other diseases of the circulatory system; Z79.899 Other long term (current) drug therapy
CPT/HCPCS: 10078; 10081

== ENCOUNTER 2018-10-18 16:01 | Inpatient (IN) | payer OTHER, BC ==
[~2018-10-18] VITALS: Ht 160 cm; Wt 57.7 kg
--- NOTE | ~2018-10-18 | H ---
[facility] [place] [address] HISTORY AND PHYSICAL Name: CEDRIC JONES Room #: 513-P ADM IN M.R.#: [id number] Admission: 10/18/18 ������������������ Attend Phys: Luis E Singh MD Discharge: ������������������ Date of : 12/29/[birth year] Report #: [id number] THIS REPORT FOR: //name// CC: Luis E Xie DATE OF SERVICE: 10/18/2018 HISTORY AND PHYSICAL AND POST-ADMISSION PHYSICIAN EVALUATION HISTORY OF PRESENT ILLNESS: The patient is an 87-year-old white female who originally was admitted to [facility] on 10/09/2018 after her son found her down in her home. She was admitted and found to have elevated troponin, evaluated by Pulmonary and Cardiology services and was treated in the ICU. She was on BiPAP for elevated CO2 levels, is on nebulizers, antibiotics and steroids. She had an overall significant decline in her functional mobility and we evaluated her for rehabilitation. She was noted to have a community-acquired pneumonia with sepsis. She had a significant decline from her premorbid functional level and has now been admitted for acute in-hospital inpatient rehabilitation. PAST MEDICAL HISTORY: Includes cancer, heart disease, hypertension, thyroid disease, depression, glaucoma. There is a note of some mild dementia. PAST SURGICAL HISTORY: Left mastectomy and eye surgery. FAMILY HISTORY: Significant for heart disease. HABITS: No history of tobacco abuse or alcohol abuse or recreational drug abuse. MEDICATIONS: Please see the full medication listing. This includes vitamins, herbals, and supplements per report. ALLERGIES: Include TETRACYCLINE. SOCIAL HISTORY: She lives alone, has 2 sons, although they do not live in the [place] area. She has extended family that can help. She has a single point cane for long community distances. She lives in a raised ranch, 14 steps to enter and all living on one level. 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 REVIEW OF SYSTEMS: No complaints of chest pain, shortness of breath, abdominal discomfort. No headache, bowel or bladder changes, focal extremity pain complaints. She has some shortness of breath with increased activity as expected. Review of systems, otherwise negative. [facility] [address] [place] [address] HISTORY AND PHYSICAL Name: CEDRIC JONES Room #: 513-P [facility] IN M.R.#: [id number] Admission: 10/18/18 ������������������ Attend Phys: Luis E Singh MD Discharge: ������������������ Date of : 12/29/[birth year] Report #: [id number] PHYSICAL EXAMINATION: GENERAL: Small statured, thin 87-year-old white female in no obvious distress. VITAL SIGNS: Last recorded temperature 98, pulse 88, respirations 16, blood pressure 113/77. The patient is sleepy, does arouse. Facies appeared symmetric. She is on 3 liters nasal cannula. CHEST: Some diffuse decreased breath sounds. CARDIOVASCULAR: Sounded regular rate and rhythm. ABDOMEN: Bowel sounds positive, nontender. HEENT: Otherwise appeared benign. GENITOURINARY AND RECTAL: Deferred. EXTREMITIES: Functional range of motion of the upper and lower extremities. Strength is probably at grossly 3+/5. No focal calf swelling. Negative Homans' sign. Tone appears intact. ASSESSMENT: An 87-year-old white female with the following problem list: 1. Respiratory failure with pulmonary rehabilitation. 2. Community-acquired pneumonia with sepsis. 3. Acute renal failure, resolved. 4. Elevated troponin, likely supply demand ischemia. 5. Hypertension. 6. Mild protein-calorie malnutrition. 7. Hypothyroidism. PLAN: The patient is admitted for acute in-hospital inpatient rehabilitation. From a post-admission physician evaluation perspective, there are no relevant changes since the preadmission screening. Please see the above review of prior and current medical and functional conditions and comorbidities. Please see the patient's previous and current functional status. As far as risk of complications, the patient has multiple medical comorbidities as noted above. The initial plan of care involves the interdisciplinary acute inpatient rehabilitation program with goal of maximizing the patient's functional independence, so that she can hopefully return back to her prior living situation. Measurable functional goals would be for the patient to become modified independent with transfers, mobility, ADLs at least at the walker level to try to have her get to the point where she can return back to her home setting. Prognosis is reasonably good with estimated length of stay probably at least 10 days to 2 weeks. Potential barriers would include her multiple medical comorbidities and decreased functional status. The patient meets diagnostic criteria for an acute in-hospital inpatient rehabilitation stay. She meets the medical necessity criteria and we will have the multiple oracle drm consultant physicians continue to follow up[place] [address] HISTORY AND PHYSICAL Name: CEDRIC JONES Room #: 513-P ADM IN M.R.#: [id number] Admission: 10/18/18 ������������������ Attend Phys: Luis E Singh MD Discharge: ������������������ Date of : 12/29/28 Report #: [id number] tolerance for therapies and she has appropriate discharge goals back to the home setting. ��������������������������������������������� ���������������������������������������� By: ��������������������������������������������� 0732 0915 Luis E Singh MD /CARL
--- NOTE | ~2018-10-18 | PLAN ---
[facility] [place] [address] REHAB UNIT PLAN OF CARE Name: CEDRIC JONES Room #: 513-P ADM IN M.R.#: [id number] Admission: 10/18/18 ������������������ Attend Phys: Luis E Singh MD Discharge: ������������������ Date of : 12/29/[birth year] Report #: [id number] THIS REPORT FOR: //name// CC: Luis E Xie DATE OF SERVICE: 10/20/2018 PROGRESS NOTE/OVERALL PLAN OF CARE SUBJECTIVE: The patient was seen back earlier. She has not been in any distress. Temperature 36.2, pulse 59, respirations 17, blood pressure 149/66. She has been ambulating to the bathroom with nursing. Using a gait belt walker and oxygen. PHYSICAL THERAPY: GENERAL: She has been transferring with mod assist. Gait has been mod assist 85 feet with a front-wheeled walker. ASSESSMENT: 1. Respiratory failure with pulmonary rehabilitation. 2. Community-acquired pneumonia with sepsis. 3. Acute renal failure, resolved. 4. Elevated troponin, likely supply demand ischemia. 5. Hypertension. 6. Mild protein calorie malnutrition. 7. Hypothyroidism. PLAN: The overall plan of care is based on the preadmission screen, post-admission physician evaluation and information garnered from therapy assessments. 1. Estimated length of stay is probably 10 days to 2 weeks. 2. Medical prognosis is reasonably good. 3. Anticipated interventions includes an interdisciplinary acute inpatient rehabilitation program with PT and OT, rehab nursing assisting regarding medication management, skin care prophylaxis, bowel and bladder issues and nursing education. Case management is involved as well as the interdisciplinary rehabilitation team. 4. Anticipated functional outcomes would be for the patient to become modified independent ideally back at her single point cane level for mobility and ADLs. 5. Discharge destination would be back to her home setting. 6. Expected therapy by discipline includes PT and OT, 1-1/2 hours per day each [facility] [address] [place] [address] REHAB UNIT PLAN OF CARE Name: CEDRIC JONES Room #: 513-P ADM IN [facility]#: [id number] Admission: 10/18/18 ������������������ Attend Phys: Luis E Singh MD Discharge: ������������������ Date of : 12/29/28 Report #: [id number] five days a week throughout the duration of the acute inpatient rehabilitation stay. ��������������������������������������������� ���������������������������������������� By: ��������������������������������������������� [id number] Luis E Singh MD /nt
[~2018-10-18 16:01] MED LIST changes: +ADULT LOW DOSE81 MG PO; +ARICEPT 5 MG TAB5 MG PO; +AZITHROMYCIN 2250 MG PO; +BRIMONIDINE TART5 ML OPHTHALMIC; +CALCIUM 600 +1 EAC1 PO; +CEFDINIR300 MG PO; +CELEXA10 MG PO; +CENTRUM SILVER1 EAC4 PO; +ERYTHROMYCIN E3.5 G3 OPHTHALMIC; +FISH OIL 1,001000 M2 PO; +FOSAMAX 70 MG T70 MG PO; +LIPITOR10 MG PO; +LISINOPRIL20 MG PO; +MUCINEX600 MG PO; +NORVASC5 MG PO; +PRED FORTE 1% EY5 M1 OPHTHALMIC; +SEROQUEL 25 MG25 M1 PO; +SIMBRINZA 1%-0.28 ML OPHTHALMIC; +SYNTHROID100 MC1 PO; +VITAMINC500 PO
[2018-10-18 20:32] VITALS: BP 113/77
--- NOTE | 2018-10-19 03:25 | NUR ---
assumed care at approx 1900 evening 10/18. pt sitting up in recliner at change of shift resting and watching tv. pt alert and oriented, hard of hearing and somewhat anxious. 02 at 3l per n/c. pt with loose, productive cough and resp tx as ordered. pt took hs meds with water tolerating well. pt wore cpap for short time tonight stated she felt claustrophobic and kept taking mask off. pt now with n/c 3l and appears to be sleeping better. call light in reach, bed alarm on. will continue to monitor.
[2018-10-19 05:44] LABS: HEMATOCRIT 35.3 % (37.0-47.0); HEMOGLOBIN 10.9 gm/dL (12.0-15.0); MCH 21.1 pg (26.0-34.0); MCHC 30.8 g/dL (28.0-37.0); MCV 68.4 fL (80.0-100.0); RBC 5.15 mil/uL (4.20-5.00); RDW 15.8 % (10.5-14.5); WBC 14.9 thou/uL (4.0-11.0)
[2018-10-19 05:57] LABS: BUN 25 mg/dL (7-18); CALCIUM 9.5 mg/dL (8.5-10.1); CHLORIDE 98 mmol/L (98-107); CREATININE 0.6 mg/dL (0.6-1.0); GLUCOSE 117 mg/dL (74-106); POTASSIUM 5.7 mmol/L (3.5-5.1); SODIUM 142 mmol/L (136-145)
[2018-10-19 06:02] LABS: CO2 > 45 mmol/L (21-32)
[2018-10-19 09:48] VITALS: BP 118/76
--- NOTE | 2018-10-19 19:45 | NUR ---
ASSUMED CARE AT APPROX 0715. PATIENT A/O TO PERSON AND SITUATION, HARD OF HEARING. FORGETFUL. DENIES PAIN. O2 SATS MAINTAINED ON 3L O2 PER NC. PARTICIPATED IN PT EVALUATION. OUT TO DINING ROOM FOR MEALS. AMBULATED TO TOILET TO VOID. HOSPITALIST CONTACTED REGARDING LOOSE STOOLS, PROBIOTIC STARTED. PATIENT CALLS APPROPRIATELY FOR ASSISTANCE. FALL PRECAUTIONS IN PLACE. RESTING IN RECLINER AT CHANGE OF SHIFT.
[2018-10-19 19:51] VITALS: BP 134/76
--- NOTE | 2018-10-20 05:07 | NUR ---
ASSUMED CARE OF PT AT 1915. PT ALERT AND ORIENTED X4, HAS BEEN ANXIOUS WITH DIFFICULTY SLEEPING THIS SHIFT. CPAP APPLIED BY RESP [place] AROUND 0030, REMOVED AT HER REQUEST AT 0230. AMBULATES TO BATHROOM WITH ASSIST OF ONE USING GAIT BELT, WALKER, AND OXYGEN. HAS LOOSE, CONGESTED, NON-PRODUCTIVE COUGH. HAS MOVED FROM CHAIR TO BED SEVERAL TIMES, TRYING TO GET COMFORTABLE. CHECKED ON HOURLY ROUNDS. FALL PRECAUTIONS IN PLACE.
[2018-10-20 09:46] VITALS: BP 149/66
--- NOTE | 2018-10-20 14:37 | NUR ---
cm visited with pt and son cesario via phone call. pt is a & o x 2-3 with some forgetfulness, pleasant and [place]. noted pt working with ot, pt has oxygen on via sc, using bipap at hs. intro to cm, team meeting and dcp. " live alone in split level home, 8 steps, the 8 up to living room and 16 down to laundry room. was independent prior to hospital. has life alert but doesnt use it. still driving to [employer] and [employer] with in 1 mile of home. 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 was cooking, took sponge baths. only been in hospital 2 x in [address] been asking her to go to nursing home since 2016 and she is independent and will not go to [facility]. have checked into [facility] but mom refused."/son cesario. education on private duty and senior blue book that pt had already received. will cont following as needed for dc needs.
--- NOTE | 2018-10-20 19:42 | NUR ---
ASSUMED CARES AT 0700. PT AWAKE, ALERT AND ORIENTED *4. [place]RAIG, SON BROUGHT NEW HEARING AIDES TODAY. LS CRACKLES AND SOME WHEEZING, PT HAS PRODUCTIVE COUGH, SEMITHICK CREAM COLORED SECRETIONS. ON 3L O2 VIA NC. SOB WITH ACTIVITY BUT PT RECOVERS FAST. PT CONTINUES TO HAVE BLE EDEMA. SKIN REMAINS INTACT. ALL OTHER VITALS WNL. DENIES PAIN. UP WITH 1 PERSON MIN ASSIST. Q1H VISUAL CHECKS. CALL LIGHT WITHIN REACH. FALL PRECAUTIONS IN PLACE
[2018-10-20 19:50] VITALS: BP 95/54
--- NOTE | 2018-10-21 02:47 | NUR ---
PT DROWSY, EASILY AROUSED. ORIENTED X 4. 02 ON AT 3L PER NC CONT. PT REFUSED CPAP. CONGESTED NON-PRODUCTIVE COUGH NOTED. LUNGS COARSE. PT DENIES SOB. PT DENIES PAIN OR DISCOMFORT. BED ALARM ON FOR SAFETY. PT APPEARS TO BE SLEEPING ON HOURLY ROUNDS. PT SLEPT IN RECLINER.
[2018-10-21 07:30] VITALS: BP 95/61
--- NOTE | 2018-10-21 11:49 | NUR ---
ASSUMED CARE AT 0700. PATIENT IS ALERT AND ORIENTED X4, BUT IS VERY [place]. PATIENT SWARTZ'S. CYBER TRANSPORT SYSTEMS SPECIALIST ARE EQUAL. LUNGS ARE COARSE AND DEMINISHED WITH A CONGESTED COUGH. PATIENT COUGHING UP CREAM COLORED SPUTUM. PATIENT UP IN CHAIR FOR BREAKFAST. 02 AT 3L PER N/C. ABD IS SOFT WITH BSX4. UP TO THE BATHROOM WITH ASSIST OF 1 STAFF, GAIT BELT AND WALKER. FALL AND SAFETY PROTOCOLS IN PLACE. DENIES PAIN AT THIS TIME. CONTINUES TO PROGRESS SLOWLY TOWARDS D/C GOALS. PATIENT HAS S.L. IN RIGHT FORARM. WILL CONTINUE TO MONITER.
--- NOTE | 2018-10-21 13:44 | NUR ---
team meeting, recommendation : re team, dc 10/30/18, cont with dcp, will possible [facility], will needs assistance with o2, possible bipap.
[2018-10-21 19:45] VITALS: BP 110/59
--- NOTE | 2018-10-22 00:27 | NUR ---
PT ALERT AND ORIENTED X 4. AMB TO BR WITH WALKER AND ASSIST X 1 WITHOUT DIFFICULTY. 02 ON AT 2L PER NC CONT. CONGESTED COUGH NOTED. NO SPUTUM SEEN BY THIS NURSE. CPAP JUST PLACED ON PT BY RT. PT DENIES PAIN OR DISCOMFORT. PT CHOOSES TO STAY IN RECLINER TONIGHT. CHAIR ALARM ON FOR SAFETY. PT CHECKED ON HOURLY ROUNDS.
[2018-10-22 07:30] VITALS: BP 107/70
[2018-10-22 07:50] VITALS: BP 103/57
--- NOTE | 2018-10-22 09:58 | NUR ---
ASSUMED CARE AT 0700. PATIENT IS ALERT AND ORIENTED X4, BUT IS VERY [place]. PATIENT FAMILY WOULD LIKE HER EARS CHECKED FOR WAX. LUNGS ARE COARSE AND DEMINISHED. PATIENT CONTINUES ON 02 AT 2L PER N/C. ABD IS SOFT WITH BSX4. UP TO THE BATHROOM TO VOID EMILY COLOR URINE. PATIENT IS UP ASSIST OF 1 STAFF, GAIT BELT AND WALKER. FALL AND SAFETY PROTOCOLS IN PLACE. DENIES ANY PAIN. CONTIUES TO PROGRESS SLOWLY TOWARDS D/C GOALS. PATIENT HAS S.L. IN HER RIGHT FORARM. IV STIE WITHOUT REDNESS OR SWELLING. WILL CONTINUE TO MONITER.
--- NOTE | 2018-10-22 16:28 | NUR ---
FAXED REFERRAL TO [facility] SPOKE WITH KATHRYN IN ADM. SHE RECEIVED REFERRAL AND WILL REVIEW. FAXED REFERRAL TO [facility] LEFT MSG WITH JAIMEE IN ADM. TO REVIEW REFERRAL AND ANTICIPATE DC NEXT WK. FAXED REFERRAL TO [facility] LEFT MS WITH LOUISE IN ADM. THAT ANTICIPATE DC NEXT WEEK. DCP TO FOLLOW.0
[2018-10-22 19:32] VITALS: BP 107/62
--- NOTE | 2018-10-23 04:01 | NUR ---
assumed care at approx 1900 evening 10/22. pt sitting in recliner at change of shift sleeping. 02 at 2l per n/c. resp tx as ordered. pt appropriate and cooperative. pt took hs meds with water tolerating well. pt requesting to sleep in recliner. pt up with 1 assist with walker to bathroom and pt incontinent of bowel in brief. assisted with changing. pt wore cpap for short time with pulse oximeter alarming frequently and pt not able to sleep. pts sats in the 90's with cannula on and pt sleeping well. chair alarm on and call light in reach. will continue to monitor.
[2018-10-23 08:55] VITALS: BP 118/69
--- NOTE | 2018-10-23 09:30 | NUR ---
cm left message for son cesario to call cm team back, cm was notified that son had some dc question.
--- NOTE | 2018-10-23 11:42 | NUR ---
ASSUMED CARES AT 0700. PT AWAKE, ALERT AND ORIENTED*4, [place] WEARING HEARING AIDES TODAY. DENIES PAIN. VITALS REMAINED STABLE. ON 2L OXYGEN VIA NC, SATS >92%, SOA WITH EXERSION. LS COARSE AND WHEEZY, PT RECEIVING BREATHING RX Q4H PT ABLE TO AMBULATE WITH PT AND TOLERATED WELL. BS ACTIVE, ABDOMEN SOFT AND ROUND, LAST BM THIS AM. SKIN REMAINS INTACT. PT UP WITH 1 PERSON MIN ASSIST AND TOLERATED WELL. Q1H VISUAL CHECKS. CALL LIGHT WITHIN REACH. FALL PRECAUTIONS IN PLACE
[2018-10-23 19:51] VITALS: BP 114/70
--- NOTE | 2018-10-24 02:09 | NUR ---
assumed care at approx 1900 evening 10/23. pt sleeping in recliner at change of shift. 02 at 3L per n/c. pt states she prefers to sleep in recliner. pt took hs meds with water tolerating well. pt up to bathroom with walker, 02 and 1 assist. pt still with loose, productive cough. pt with pulse oximeter in place and sats 92% and greater. pt not wearing cpap at present and sleeping soundly with hourly checks and pt in close proximity to nurses station. chair alarm on and call light in reach. will continue to monitor.
[2018-10-24 08:05] VITALS: BP 100/54
--- NOTE | 2018-10-24 15:27 | NUR ---
cm spoke with son cesario rt dcp and detention. " wait my and i have been checking into detention but therapy told me we should maybe looking into ltc care"/cesario. education that needing to cont working on plan discussed for detention. let him know that [facility] "had offered room year ago and since did not take it, she at back of list."/losp. " ok thank you were going to check [facility], [facility], [facility] and [facility]"/cesario. cm team to send referral [facility] per family choice.
[2018-10-24 19:55] VITALS: BP 126/60
--- NOTE | 2018-10-24 19:56 | NUR ---
ASSUMED CARES AT 0700. PT AWAKE, ALERT AND ORIENTED *4. DENIES PAIN. LUNG SOUNDS CONGESTED, PT CONTINUES TO HAVE LOOSE COUGH, SECRETIONS ARE THICK CREAM/WHITE. ON 2-3L VIA NC WITH SATS >92%. ALL OTHER VITALS STABLE. SKIN REMAINS INTACT. PT UP WITH 1 PERSON MIN ASSIST, GAITBELT AND WALKER. Q1H VISUAL CHECKS. CALL LIGHT WITHIN REACH. FALL PRECAUTIONS IN PLACE
--- NOTE | 2018-10-25 00:03 | NUR ---
PT ASSESSMENT COMPLETED AND VSS. MEDS GIVEN ORDERED AND WELL TOLERATED. FALL PRECAUTIONS IN PLACE. PT REFUSED TO SLEEP IN BED AND IS SLEEPING IN THE RECLINER. PRN TYLENOL HELPFUL FOR BACK PAIN. SLEEPING WELL. WILL CONTINUE TO MONITOR FREQUENTLY.
[2018-10-25 07:30] VITALS: BP 115/64
--- NOTE | 2018-10-25 10:17 | NUR ---
ASSUMED CARE AT 0700. PATIENT IS ALERT AND ORIENTED, BUT IS VERY [place]. PATIENT SWARTZ'S, SUPERINTENDENT RENTING MANAGING ARE EQUAL. LUNGS ARE COARSE AND DEMINISHED, WITH OCCASIONAL EXP. WHEEZE. PATIENT REMAINS ON 02 AT 2-3 L PER N/C AND RESPIRATORY TX. ABD IS SOFT WITH BSX4. UP IN CHAIR FOR MEALS. PATIENT HAS VISUAL PROBLEMS IN HER LEFT EYE. PATIENT REMAINS ON EYE GTTS FOR VISUAL PROBLEM. FALL AND SAFETY PROTOCOLS IN PLACE. DENIES ANY PAIN. CONTINUES TO PROGRESS SLOWLY TOWARDS D/C GOALS. WILL CONTINUE TO MONITER.
--- NOTE | 2018-10-25 23:54 | NUR ---
PT ASSESSMENT COMPLETED AND VSS. MEDS GIVEN ORDERED AND WELL TOLERATED. FALL PRECAUTIONS IN PLACE. PT REFUSED TO GET OUT OF CHAIR FOR BED. WILL CONTINUE TO TRY AND GET PT TO THE BED. UP TO THE BATHROOM WITH ASST/GAIT/WALKER. STEADY. SAT WNL ON NC. ENC IS AND C & DB. SLEEPING WELL. WILL CONTINUE TO MONITOR FREQUENTLY.
[2018-10-26 08:28] VITALS: BP 119/59
--- NOTE | 2018-10-26 19:34 | NUR ---
ASSUMED CARE OF PT AT 0715. PT IS A&OX4. IS [place] & HAS HEARING AIDS. DENIES PAIN. IS ON 2L OF O2/NC. HAS BILAT LE EDEMA. TEDS IN PLACE & LE ELEVATED. IS UP WITH 1 ASSIST, GB, WALKER. FALL PRECAUTIONS & HOURLY ROUNDING MAINTAINED. LABS & VITALS REVIEWED. IS CONT TO B&B BUT LIKES TO WEAR BRIEFS WHEN AWAKE FOR COMFORT. WILL CONTINUE TO MONITOR.
[2018-10-26 19:36] VITALS: BP 115/69
[2018-10-27 04:26] LABS: ANION GAP < 0 mmol/L (7-16); BUN 23 mg/dL (7-18); CALCIUM 9.2 mg/dL (8.5-10.1); CHLORIDE 97 mmol/L (98-107); CO2 40 mmol/L (21-32); CREATININE 0.7 mg/dL (0.6-1.0); GLUCOSE 94 mg/dL (74-106); MAGNESIUM 1.8 mg/dL (1.8-2.4); POTASSIUM 4.7 mmol/L (3.5-5.1); SODIUM 136 mmol/L (136-145)
--- NOTE | 2018-10-27 04:42 | NUR ---
ASSUMED CARE AT APPROX 1900 EVENING 10/26. PT SITTING IN RECLINER AT CHANGE OF SHIFT SLEEPING. 02 AT 2L PER N/C. PT ASSISTED INTO BED AT AND PT APPEARS TO BE SLEEPING SOUNDLY WITH HOURLY ROUNDING CHECKS. BED ALARM ON AND CALL LIGHT IN [facility]. WILL CONTINUE TO MONITOR.
[2018-10-27 05:15] LABS: BASOPHILS 0.7 % (0.0-2.0); EOSINOPHILS 1.2 % (0.0-3.0); HEMATOCRIT 29.8 % (37.0-47.0); HEMOGLOBIN 9.2 gm/dL (12.0-15.0); LYMPHOCYTES 9.4 % (24.0-44.0); MCH 21.1 pg (26.0-34.0); MCHC 30.8 g/dL (28.0-37.0); MCV 68.5 fL (80.0-100.0); MONOCYTES 9.3 % (1.0-8.0); PLATELET COUNT 265 thou/uL (150-400); POLYS 79.4 % (36.0-66.0); RBC 4.35 mil/uL (4.20-5.00); RDW 16.1 % (10.5-14.5); WBC 8.8 thou/uL (4.0-11.0)
[2018-10-27 07:05] VITALS: BP 107/73
--- NOTE | 2018-10-27 11:01 | NUR ---
ASSUMED CARES AT 0700. PT AWAKE, ALERT AND ORIENTED*4. DENIES PAIN. VITALS REMAIN STABLE. LS COARSE/DIMINISHED, ON 2L OXYGEN WITH SATS >92%. SKIN REMAINS INTACT. MILD BLE EDEMA, NANCY HOSE IN PLACE. PT UP WITH 1 PERSON MIN ASSIST. AMBULATING WITH THERAPY AND TOLERATED. Q1H VISUAL CHECKS. CALL LIGHT WITHIN REACH. FALL PRECAUTIONS IN PLACE
--- NOTE | 2018-10-27 14:33 | NUR ---
DISCHARGE PLANNING: PT'S SON, JOSE JONES, STATED THAT HE HAS CHOSEN A FACILITY FOR [facility] FOR THE PT: [facility] IN [place], [place]. HE REQUESTED THAT CLINICALS BE FAXED THERE SO THEY CAN EVALUATE THE PT. CRISTOBAL BOWMAN WAS AT THE DESK AND HEARD JOSE'S REQUEST. SHE STATED THAT CLINICALS WERE FAXED ON SATURDAY AND TODAY TO [facility], AND SHE RECEIVED A FAX CONFIRMATION. SHE IS IS FOLLOWING UP WITH THE CM [employer] TO ENSURE THAT THESE REACHED THE RIGHT PERSON, AND STATED PLAN TO FOLLOW UP WITH JOSE ONCE THEY HAVE CONFIRMATION THAT CLINICAL INFORMATION WAS RECEIVED AT THE FACILITY. JOSE'S PHONE IS [phone].
--- NOTE | 2018-10-27 15:19 | NUR ---
DCP FAXED REFERRAL TO [facility] SPOKE WITH JUANCARLOS IN ADM. SHE RECEIVED REFERRAL AND THEY WILL DO A ONSITE EVAL FOR A.L. ANTICIPATE DC 10/30 DCP TO FOLLOW.
--- NOTE | 2018-10-27 15:31 | NUR ---
[facility] called stated they got referral for [facility]. [facility] is going to come at complete shelter screen to see if appropriate for al vs snf. information passed on to son cesario via phone call, and update passed on to 5n team
[2018-10-27 19:56] VITALS: BP 117/67
--- NOTE | 2018-10-28 00:09 | NUR ---
PT ASSESSMENT COMPLETED AND VSS. MEDS GIVEN ORDERED AND WELL TOLERATED. FALL PRECAUTIONS IN PLACE. UP TO THE BATHROOM WITH ASST/GAIT/WALKER - STEADY. VOIDING MODERATE AMOUNT OF YELLOW URINE. PRN TYLENOL HELPFUL FOR BACK PAIN. SLEEPING WELL. WILL CONTINUE TO MONITOR FREQUENTLY.
[2018-10-28 07:30] VITALS: BP 96/51
--- NOTE | 2018-10-28 12:41 | NUR ---
Nutrition: Pt seen for LOS on rehab unit. Admit with acute respiratory failure with hypoxemia, CAP. No recent weight loss, UBW reported as 115#. Orbital wasting observed. Physician doc non severe malnutrition-agree/defer dx. PO intake is variable from 25-100% per records. Pt voices she eats a little of everything but always drinks 2 ensures/day. Obtained food preferences. Requires modified diet of mechanically altered ground. Plan D/C 10/30.
--- NOTE | 2018-10-28 12:57 | NUR ---
team meeting, recommendation: post acute to cont rehab prior to AL then transition to [facility], o2 stat exercise and possible trilogy. st eval for swallowing. will cont following as needed for dc needs.
[2018-10-28 20:00] VITALS: BP 105/57
--- NOTE | 2018-10-28 20:04 | NUR ---
ASSUMED CARE OF PATIENT AT APPROXIMATELY 0715. PATIENT IS A&OX3 AND HAS PERIODS OF FORGETFULLNESS DURING VARIOUS TIMES OF THE DAY. VITAL SIGNS STABLE ON 2L O2 VIA NC. PATIENT PARTICIPATED IN SCHEDULED THERAPIES. NO COMPLAINTS OF PAIN DURING THIS SHIFT. CALL LIGHT IS IN REACH OF THE PATIENT AND ALARMS PLACED PER ORDERS, WILL CONTINUE TO MORNITOR.
--- NOTE | 2018-10-29 02:35 | NUR ---
UP TO BATHROOM WITH WALKER, O2, SBA. IN BED AT 2030 AND NOTED THAT SHE HAD BEEN FITTED WITH A CPAP FACE MASK, WHEN RT CAME BY TO SET HER UP ON IT, SHE DECLINED. 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
--- NOTE | 2018-10-29 07:00 | NUR ---
WILLING TO TRY CPAP AT 0400, TOLERATED CPAP WITH 2L BLEED-IN UNTIL NOW, WHEN REMOVED FOR 0700 MEDS. SAT MONITOR FLUCTUATED BETWEEN 83% AND 94% SHE SLEPT. AWAKE NOW, SHE IS SATTING 96% OR MORE ON 1.5 LITERS PNC
[2018-10-29 08:54] VITALS: BP 121/68
--- NOTE | 2018-10-29 11:00 | NUR ---
per beside nurse try to reach pulmonary to check on if pt going to require trilogy at dc tomorrow. cm spoke with [facility] and they are able to do trilogy at skilled and then pt can use in it AL as well. spoke with son cesario who is going to be moving some of her belonging over to [facility] today so will be ready after skilled rehabu.
--- NOTE | 2018-10-29 14:17 | NUR ---
FAXED CLINICAL UPDATE TO [facility] LEFT MSG WITH JUANCARLOS IN ADM. THAT PT. CANNOT HAVE TRILOGY SET UP BY OUR FACILITY TIL SHE GET TO ASSISTED LIVING. THAT [facility] WILL NEED TO SET UP TRILOGY WHILE IN SKILLED FACILITY. DCP TO FOLLOW.
--- NOTE | 2018-10-29 14:42 | NUR ---
Patient participated in community reintegration on 10/29/18 with Physical Therapy. Refer to documentation by PT.
--- NOTE | 2018-10-29 16:11 | NUR ---
ASSUMED CARES AT 0700. PT AWAKE, ALERT AND ORIENTED*4. DENIES PAIN. VITALS REMAINED STABLE. ON 2L O2 VIA NC WITH SATS >92%, LS COARSE/DIMINSIHED. PT CONTINUES TO HAVE A PRODUCTIVE COUGH, SECRETIONS THICK WHITE TO CREAM COLORED. LABORER [facility] CONSULTED REGARDING HOME TRILOGY, THEY APPROVED AND MESSAGE PASSED ON TO . PT REMAINS Q2H REPOSITIONING. SKIN REMAINS INTACT. PT UP WITH 1 PERSON SBA, AMBULATED THE HALLWAYS AND TOLERATED WELL. Q1H VISUAL CHECKS. CALL LIGHT WITHIN REACH. FALL PRECAUTIONS IN PLACE
--- NOTE | 2018-10-29 16:43 | NUR ---
FAXED CLINICAL INFO. FOR PT. TO HAVE TRILOGY AT [facility] SPOKE WITH JUANCARLOS IN ADM. SHE RECEIVED INFO. AND DCP WILL F/U IN AM TO MAKE SURE EVERYTHING IS SET UP FOR TRILOGY. DCP TO FOLLOW.
[2018-10-29 21:31] VITALS: BP 108/53
--- NOTE | 2018-10-30 03:43 | NUR ---
TURNING SELF SLIGHTLY TO SIDES WHILE KEEPING HOB UP TO EASE BREATHING. HAS TOLERATED CPAP TONIGHT SINCE 2344 WITH FACE MASK TIGHTENED BY RT, O2 SAT REMAINS IN HIGH 90s WITH A 2L BLEED-IN. UP TO BATHROOM FOR CONTINENT VOIDING AND A SMALL BM.
--- NOTE | 2018-10-30 05:24 | NUR ---
STEADY GAIT TO BATHROOM WITH O2 EXTENSION TUBING. TOLERATED CPAP FOR 5 HOURS FIFTEEN MINUTES WITHOUT ALARMS. SHE SAYS SHE IS UP AND AWAKE FOR THE DAY, O2 SAT 96% ON 2 LITERS, NOW SHE HAS DOZED OFF
[2018-10-30 08:16] VITALS: BP 107/63
--- NOTE | 2018-10-30 09:31 | NUR ---
ASSUMED CARES AT 0700. PT AWAKE. ALERT AND AND ORIENTED*4. DENIES PAIN. VITALS REMAIN STABLE. LS COARSE AND WHEEZY ON RIGHT UPPER AND LOWER LOBE, CLEAR/DIM LL, PT CONTINUES TO HAVE A COUGH, SECRETIONS ARE THICK AND DIFFICULT TO BRING UP. ON 2L OXYGEN VIA NC WITH SATS >93%. ABDOMEN SOFT AND ROUND, BS ACTIVE*4, LAST BM 10/29. SKIN REMAINS INTACT. PT CONTINUES TO BE BISHOP PAIUTE, EAR DROPS ADMINISTERED ORDERED. PT UP WITH 1 PERSON SBA, GAITBELT AND CANE. AMBULATING THE HALLWAYS AND TOLERATED WELL. PT TO DC TODAY TO [facility]. STAFF WILL CALL REPORT TO FACILTY. Q1H VISUAL CHECKS. CALL LIGHT WITHIN REACH. FALL PRECAUTIONS IN PLACE
[2018-10-30] MEDS ORDERED: PROTONIX 20 MG20 MG PO (09:50)
[2018-10-30] MEDS ORDERED: PROBIOTIC1 EAC1 PO (09:50)
[2018-10-30] MEDS ORDERED: IPRAT-ALBUT 0.5-3 ML INH (09:50)
--- NOTE | 2018-10-30 12:00 | NUR ---
david called [facility] to see how set up for trio was going, spoke with luli, she stated the were still needing order for trilogy the order and documentation in pt clinical is for bipap. let them know would check into weather [facility] is wanting bipap or trilogy. david spoke with bedside nurse who stated verbal order yesterday was for trilogy. chart copy has been requested for pt going to skilled to transition into new home at [facility]. agusto unable to set up o2 or bipap rt pt going to skilled rehab 1st. then going to AL at [facility]
--- NOTE | 2018-10-30 16:52 | NUR ---
PT.DISCHARGING TO [facility]ILLED FAXED DC ORDERS/SUMMARY TO FACILITY SPOKE WITH JUANCARLOS IN ADM. SHE RECEIVED DC ORDERS AND PT. WILL HAVE TRILOGY AT FACILITY SET UP THROUGH [facility]. FAMILY NOTIFIED OF TIME OF TRANSPORT AND UNIT NOTIFIED. CHART COPY PER US. RN TO CALL REPORT TO [phone].
== END 2018-10-30 17:23 | DRG 189 ==
PROVIDERS: Nurse Practitioner; ADMIT Physical Medicine & Rehabilitation
PROC: 5A09357 Assistance with Respiratory Ventilation, Less than 24 Consecutive Hours, Continuous Positive Airway Pressure (ICD-10-PCS; principal; 2018-10-18)
PROC: 5A09357 Assistance with Respiratory Ventilation, Less than 24 Consecutive Hours, Continuous Positive Airway Pressure (ICD-10-PCS; 2018-10-22)
PROC: 5A09357 Assistance with Respiratory Ventilation, Less than 24 Consecutive Hours, Continuous Positive Airway Pressure (ICD-10-PCS; 2018-10-26)
PROC: 5A09357 Assistance with Respiratory Ventilation, Less than 24 Consecutive Hours, Continuous Positive Airway Pressure (ICD-10-PCS; 2018-10-30)
DX: J96.21 Acute and chronic respiratory failure with hypoxia (principal); A41.9 Sepsis, unspecified organism; J18.9 Pneumonia, unspecified organism; N17.9 Acute kidney failure, unspecified; E44.1 Mild protein-calorie malnutrition; J44.1 Chronic obstructive pulmonary disease with (acute) exacerbation; J44.0 Chronic obstructive pulmonary disease with (acute) lower respiratory infection; J96.22 Acute and chronic respiratory failure with hypercapnia; I10 Essential (primary) hypertension; F32.9 Major depressive disorder, single episode, unspecified; F03.90 Unspecified dementia, unspecified severity, without behavioral disturbance, psychotic disturbance, mood disturbance, and anxiety; H40.9 Unspecified glaucoma; Z60.2 Problems related to living alone; E03.9 Hypothyroidism, unspecified; E87.70 Fluid overload, unspecified; E78.5 Hyperlipidemia, unspecified; I25.9 Chronic ischemic heart disease, unspecified; Z88.8 Allergy status to other drugs, medicaments and biological substances; Z68.22 Body mass index [BMI] 22.0-22.9, adult; Z90.12 Acquired absence of left breast and nipple; Z85.9 Personal history of malignant neoplasm, unspecified; Z82.49 Family history of ischemic heart disease and other diseases of the circulatory system; Z88.1 Allergy status to other antibiotic agents; Z79.899 Other long term (current) drug therapy; Z79.82 Long term (current) use of aspirin; Z79.4 Long term (current) use of insulin
CPT/HCPCS: 10112